=== PATIENT | female | born 1955 | race Two or more races ===

== ENCOUNTER 2017-12-30 07:22 | Outpatient (CLI) | payer OTHER | END 2017-12-30 07:33 | disposition home or self-care (01) | LOC: LAB 07:22 | DX: I10 Essential (primary) hypertension (principal); E11.9 Type 2 diabetes mellitus without complications; E03.9 Hypothyroidism, unspecified; E78.2 Mixed hyperlipidemia ==

== ENCOUNTER 2017-12-30 08:34 | Outpatient (CLI) | payer OTHER | END 2017-12-30 08:46 | disposition home or self-care (01) | LOC: RAD 08:34 → MAMO-SONO 08:45 → RAD 08:45 | DX: N62 Hypertrophy of breast (principal); Z12.31 Encounter for screening mammogram for malignant neoplasm of breast; M19.90 Unspecified osteoarthritis, unspecified site; M12.9 Arthropathy, unspecified; M46.47 Discitis, unspecified, lumbosacral region ==

== ENCOUNTER → 2017-12-30 | Outpatient (CLI) | payer OTHER | END | disposition home or self-care (01) | LOC: NUCLEAR 09:51 | DX: M81.0 Age-related osteoporosis without current pathological fracture (principal) ==

== ENCOUNTER 2018-11-29 11:35 | Outpatient (CLI) | payer OTHER | END 2018-11-29 11:43 | disposition home or self-care (01) | LOC: RAD 11:35 | DX: M12.9 Arthropathy, unspecified (principal); M19.90 Unspecified osteoarthritis, unspecified site ==